=== PATIENT | female | born 1965 | race Caucasian/White ===

== ENCOUNTER 2016-05-29 13:33 | Emergency (ER) | payer OTHER ==
[2016-05-29 14:03] VITALS: BP 143/90; PULSE 70; RESP 18; TEMP 98.2; O2SAT 96
--- NOTE | 2016-05-29 15:24 | UCPHY ---
H & P Time Seen by Provider: 05/29/16 15:03 Patient Type: New HPI/ROS: CHIEF COMPLAINT: Worried that she might have swallowed her dental bridge HISTORY OF PRESENT ILLNESS: This is a healthy 51-year-old female who presents with concerned that she might have swallowed her dental bridge while asleep a few nights ago. She has not been able to find her bridge. It is relatively small with teeth attached to a metal band. She always wears at when she sleeps. She has not been able to find it in her home. She has examined her stool and has not passed it, as best she can determine. She does not have abdominal pain, nausea, vomiting and has not been ill in general. REVIEW OF SYSTEMS: No recent fever, cough or cold, shortness of breath, chest pain, or urinary symptoms. Past Medical/Surgical History: Hypothyroidism Family history is not pertinent today. Social History: No tobacco products. She works for [employer]. Smoking Status: Never smoked Physical Exam: A focused physical examination was performed. Vital signs reviewed. Blood pressure 143/90 at triage. HEENT: Oral mucosa is moist and without lesions. Upper right maxilla is missing teeth posteriorly. Lungs: Clear to auscultation. Heart: Regular rate and rhythm. Abdomen: Soft and nontender. Constitutional: Initial Vital Signs Temperature (C) 36.8 C 05/29/16 14:00 Heart Rate 70 05/29/16 14:00 Respiratory Rate 18 05/29/16 14:00 Blood Pressure 143/90 H 05/29/16 14:00 O2 Sat (%) 96 05/29/16 14:00 O2 Delivery Mode Room Air Allergies/Adverse Reactions: No Known Allergies Allergy (Unverified 05/29/16 13:59) Home Medications: Medication Instructions Recorded Synthroid 05/29/16 Medical Decision Making ED Course/Re-evaluation: KUB was performed, imaging her lower chest and abdomen. No foreign body identified. I reviewed the images and have reviewed the radiologist's report. I relayed to the patient the findings on her x-ray. She will continue to search her stool although I think it is unlikely that she will find the bridge, unless it does not contain radio opaque material. I am not concerned about obstruction or intra-abdominal injury in this setting. She sees her dentist in 2 days. Differential Diagnosis: I considered a differential diagnosis that includes but is not limited to retained intra-abdominal or intrathoracic foreign body, bowel obstruction, bowel perforation. Departure - Departure Disposition: Home, Routine, Self-Care Clinical Impression: Possible foreign body abdominal Condition: Good Instructions: Foreign Body Ingestion (ED) Additional Instructions: I do not see your dental bridge on the xray. Continue to look for it at home (and in your stool). Keep your dental appt on . Referrals: [place],. [Primary Care Provider] - As per Instructions - PQRS PQRS Measurement: Does not apply.
--- NOTE | 2016-05-29 18:08 | DX ---
Abdomen Single views at 1411 hours Indication: Swallowed foreign body, patient may have swallowed her bridge. Comparison: None available. Findings: No evidence of radiopaque foreign bodies in the lower chest or abdomen. No bowel obstructio n. No organomegaly. No pleural effusion. No bowel obstruction. Bones are unremarkable for patients ag e. Impression: No radiopaque foreign bodies in the lower chest or abdomen.
== END 2016-05-29 15:29 | disposition home or self-care (01) ==
LOC: CED 13:33
DX: Z03.89 Encounter for observation for other suspected diseases and conditions ruled out (principal)
CPT/HCPCS: 74000-PO